=== PATIENT | female | born 1995 | race Caucasian/White ===

== ENCOUNTER 2019-01-05 12:16 | Emergency (ER) | payer MEDICAID, OTHER ==
[2019-01-05 12:57] VITALS: BP 137/98
--- NOTE | 2019-01-05 13:08 | UC ---
Skin Complaint HPI - HPI Summary HPI Summary: Pt presents with c/o insect bite to mid back. Pt is unsure of what bit her but was able to have someone take a photo of her back and she has shown me a photo and the rash is a bulls eye with central clearing. Pt is unsure how long the rash has been there and denies any fever, body aches, joint pain or rash any place else. - History of Current Complaint Chief Complaint: UCSkin Time Seen by Provider: 01/05/19 12:50 Stated Complaint: TICK BITE Hx Obtained From: Patient Hx Last Menstrual Period: 01/05/19 ?: No Onset/Duration: Sudden Onset, Resolved Skin Exposure Onset/Duration: Days Ago Timing: Constant Onset Severity: Mild Current Severity: None Pain Intensity: 0 Location: Discrete Character: Redness Aggravating Factor(s): Nothing Alleviating Factor(s): Unknown Associated Signs & Symptoms: Positive: Rash Related History: Insect Bite/Sting - Allergy/Home Medications Allergies/Adverse Reactions: Allergies Allergy/AdvReac Type Severity Reaction Status Date / Time No Known Allergies Allergy Verified 01/05/19 12:57 Home Medications: Home Medications Cetirizine HCl [Allergy Relief] 10 mg PO DAILY 01/05/19 [History Confirmed 01/05] PMH/Surg Hx/FS Hx/Imm Hx Previously Healthy: Yes - Surgical History Surgical History: None - Family History Known Family History: Positive: Cardiac Disease - Social History Occupation: Employed Full-time Lives: With Family Alcohol Use: Occasionally Substance Use Type: None Smoking Status (MU): Never Smoked Tobacco - Immunization History Vaccination Up to Date: Yes Review of Systems All Other Systems Reviewed And Are Negative: Yes Constitutional: Positive: Negative Skin: Positive: Rash - mid back Eyes: Positive: Negative ENT: Positive: Negative Respiratory: Positive: Negative Cardiovascular: Positive: Negative Gastrointestinal: Positive: Negative Genitourinary: Positive: Negative Motor: Positive: Negative Neurovascular: Positive: Negative Musculoskeletal: Positive: Negative Neurological: Positive: Negative Psychological: Positive: Negative Is Patient Immunocompromised?: No Physical Exam Triage Information Reviewed: Yes Appearance: Well-Appearing Vital Signs: Initial Vital Signs Temp 98 F 01/05/19 12:51 Pulse 65 01/05/19 12:51 Resp 14 01/05/19 12:51 BP 137/98 01/05/19 12:51 Pulse Ox 99 01/05/19 12:51 Vital Signs Reviewed: Yes Eye Exam: Normal ENT Exam: Normal Dental Exam: Normal Neck exam: Normal Neck: Positive: Nontender, No Lymphadenopathy Respiratory Exam: Normal Respiratory: Positive: Normal breath sounds Cardiovascular Exam: Normal Musculoskeletal Exam: Normal Neurological Exam: Normal Psychological Exam: Normal Skin: Positive: Rashes - rash on mid back has cleared and now is mildly erythematous. non tender. no vessicles Course/Dx - Differential Diagnoses - Skin Complaint Differential Diagnoses: Tick Born Illness - Diagnoses Provider Diagnosis: Insect bite, Rash Discharge - Sign-Out/Discharge Documenting (check all that apply): Patient Departure All imaging exams completed and their final reports reviewed: No Studies - Discharge Plan Condition: Stable Disposition: HOME Prescriptions: DOXYcycline CAP(*) [DOXYcycline 100MG CAP(*)] 100 mg PO Q12H #42 cap Fluconazole 150 MG TAB* [Diflucan 150 MG TAB*] 150 mg PO UC ONCE #2 tablet Patient Education Materials: Insect Bite or Sting (ED) Referrals: Alba Estrella [Primary Care Provider] - If Needed - Billing Disposition and Condition Condition: STABLE Disposition: Home
== END 2019-01-05 13:34 | disposition home or self-care (01) ==
LOC: UCCORT 12:16
DX: T63.481A Toxic effect of venom of other arthropod, accidental (unintentional), initial encounter (principal); S20.469A Insect bite (nonvenomous) of unspecified back wall of thorax, initial encounter; W57.XXXA Bitten or stung by nonvenomous insect and other nonvenomous arthropods, initial encounter; Y93.9 Activity, unspecified; Y92.9 Unspecified place or not applicable; R21 Rash and other nonspecific skin eruption
CPT/HCPCS: 36415; 86618; 99202; G0463